=== PATIENT | female | born 1965 | race Hispanic/Latino ===

== ENCOUNTER 2024-02-18 12:12 | Inpatient (IN) | payer SELFPAY ==
[2024-02-18 13:18] LABS: #Basophils 0.03 10x3/uL (0.0-0.2); #Eosinphils 0.06 10x3/uL (0.0-0.5); #Monocytes 0.57 10x3/uL (0.0-1.1); #Neutrophils 4.97 10x3/uL (1.5-8.4); %Basophils 0.4 % (0.0-2.0); %Eosinophils 0.7 % (0.0-6.0); %Lymphocytes 29.6 % (18.0-47.0); %Monocytes 7.1 % (0.0-10.0); %Neutrophils 61.7 % (40.0-75.0); Hematocrit 39.6 % (34.9-44.5); Hemoglobin 14.4 g/dL (12.0-15.5); Mean Corpuscular HGB CONC 36.4 g/dL (32.0-36.0); Mean Corpuscular Hemoglobin 31.2 pg (27.0-33.0); Mean Corpuscular Volume 85.9 fL (81.6-98.3); Mean Platelet Volume 10.5 fL (7.4-10.4); Platelet Count 306 10x3/uL (150-450); RBC Distribution Width 11.1 % (11.5-14.5); Red Blood Cell (RBC) Count 4.61 10x6/uL (3.90-5.03); White Blood Cell (WBC) Count 8.1 10x3/uL (3.5-10.5)
[2024-02-18 13:31] LABS: ALT (SGPT) 19 U/L (8-55); AST (SGOT) 20 U/L (5-34); Albumin 3.7 g/dL (3.5-5.0); Alkaline Phosphatase 88 U/L (40-110); Anion Gap 19 mmol/L (10-20); BUN (Urea Nitrogen) 9 mg/dL (9.8-20.1); Bilirubin, Total 1.3 mg/dL (0.2-1.2); Calc. Creatinine Clearance 0 mL/min (70-130); Calcium 9.5 mg/dL (7.8-10.44); Carbon Dioxide 19 mmol/L (22-29); Chloride 98 mmol/L (98-107); Estimated GFR 84; Globulin 3.5 g/dL (2.4-3.5); Glucose 346 mg/dL (70-105); Potassium 3.3 mmol/L (3.5-5.1); Protein, Total 7.2 g/dL (6.0-8.3); Sodium 133 mmol/L (136-145)
[2024-02-18 17:22] LABS: Bilirubin Neg (Negative); Blood, Urine Negative (Negative); Clarity Clear (Clear); Glucose, Urine (Dipstick) >=1000 mg/dL (Negative); Ketone, Urine Negative (Negative); Leukocyte Negative (Negative); Nitrite Negative (Negative); Protein, Urine (Dipstick) Negative (Neg-Trace)
[2024-02-18 17:59] LABS: Bacteria/HPF 2+ HPF (None Seen); CAUTI Indications for Culture Spinal Cord Injury; RBC/HPF None Seen HPF (0-3); Squamous Epithelial 0-3 HPF (0-3); WBC/HPF None Seen HPF (0-3)
[2024-02-18 18:03] LABS: Urine Culture Reflex No No
[2024-02-18] MEDS ORDERED: Dextrose 5% in Water 1,000 ML IV PRN (18:24)
[2024-02-18] MEDS ORDERED: Ondansetron ODT 4 MG TAB PO PRN (18:24)
[2024-02-18] MEDS ORDERED: Dextrose 50% Abboject 50 ML SYRINGE SLOW IVP PRN (18:24)
[2024-02-18] MEDS ORDERED: Acetaminophen 650 MG Suppository PR PRN (18:24)
[2024-02-18] MEDS ORDERED: Glucagon 1 MG/ML KIT IM PRN (18:24)
[2024-02-18] MEDS ORDERED: Ondansetron PF 4 MG/2 ML Vial IVP PRN (18:24)
[2024-02-18] MEDS ORDERED: Bisacodyl 10 MG SUPP PR PRN (18:24)
[2024-02-18] MEDS ORDERED: Acetaminophen 325 MG TAB PO PRN (18:24)
[2024-02-18] MEDS ORDERED: Electrolyte Replacement Protocol 1 EACH FS PRN (18:30)
[2024-02-18 20:08] VITALS: BMI 38.9
[2024-02-18] MEDS: Lisinopril 2.5 MG TAB PO SCH (20:21)
[2024-02-18] MEDS: Famotidine 20 MG TAB PO SCH (20:21)
[2024-02-18] MEDS: Potassium Chloride 20 MEQ TAB PO SCH (20:22)
[2024-02-18] MEDS: Enoxaparin 40 MG (0.4 mL) SYRINGE SC SCH (20:28)
[2024-02-18] MEDS: HumaLOG 300 UNITS/3 ML VIAL SC PRN (20:34)
[2024-02-18] MEDS: traMADol HCl 50 MG TAB PO PRN (22:51)
[2024-02-19 05:44] LABS: #Basophils 0.04 10x3/uL (0.0-0.2); #Eosinphils 0.14 10x3/uL (0.0-0.5); #Neutrophils 4.14 10x3/uL (1.5-8.4); %Basophils 0.5 % (0.0-2.0); %Eosinophils 1.8 % (0.0-6.0); %Lymphocytes 37.8 % (18.0-47.0); %Monocytes 7.5 % (0.0-10.0); %Neutrophils 51.9 % (40.0-75.0); Hemoglobin 13.3 g/dL (12.0-15.5); Mean Corpuscular HGB CONC 35.9 g/dL (32.0-36.0); Mean Corpuscular Hemoglobin 31.5 pg (27.0-33.0); Mean Corpuscular Volume 87.7 fL (81.6-98.3); Mean Platelet Volume 10.7 fL (7.4-10.4); Platelet Count 270 10x3/uL (150-450); RBC Distribution Width 11.3 % (11.5-14.5); Red Blood Cell (RBC) Count 4.22 10x6/uL (3.90-5.03)
[2024-02-19 05:56] LABS: ALT (SGPT) 16 U/L (8-55); AST (SGOT) 13 U/L (5-34); Albumin 3.3 g/dL (3.5-5.0); Alkaline Phosphatase 78 U/L (40-110); Anion Gap 16 mmol/L (10-20); BUN (Urea Nitrogen) 8 mg/dL (9.8-20.1); Bilirubin, Total 1.1 mg/dL (0.2-1.2); Calc. Creatinine Clearance 153 mL/min (70-130); Calcium 9.1 mg/dL (7.8-10.44); Carbon Dioxide 21 mmol/L (22-29); Chloride 103 mmol/L (98-107); Estimated GFR 100; Globulin 2.9 g/dL (2.4-3.5); Glucose 178 mg/dL (70-105); Magnesium 1.6 mg/dL (1.6-2.6); Potassium 3.2 mmol/L (3.5-5.1); Protein, Total 6.2 g/dL (6.0-8.3); Sodium 137 mmol/L (136-145)
[2024-02-19 06:00] LABS: Phosphorus 4.1 mg/dL (2.3-4.7)
[2024-02-19] MEDS: HumaLOG 300 UNITS/3 ML VIAL SC PRN (06:28)
[2024-02-19] MEDS: Magnesium 2 GM/50 ML(in water) 2 GM in Premix 1 BAG IVPB SCH (10:51)
[2024-02-19] MEDS: Lisinopril 2.5 MG TAB PO SCH (10:52)
[2024-02-19] MEDS: Potassium Chloride 20 MEQ TAB PO SCH (10:55)
[2024-02-19 12:33] LABS: Hemoglobin A1c 9.8 % (4.0-6.0)
[2024-02-19] MEDS ORDERED: Magnevist 469MG/ML 20 ML VIAL ONE (13:06)
[2024-02-19 13:14] LABS: Syphilis Antibody Nonreactive (Nonreactive); Syphilis Antibody Index 0.06 S/CO (<1.00 Non-Reactive)
[2024-02-19 13:16] LABS: HIV (1/2) Antibody/Antigen Non-Reactive (NonReactive); HIV 1/2 INDEX 0.09 S/CO (<1.00)
[2024-02-19] MEDS ORDERED: Enoxaparin 40 MG (0.4 mL) SYRINGE SC SCH (13:30)
[2024-02-19] MEDS: metFORMIN 500 MG TAB PO SCH (17:19)
[2024-02-19] MEDS: Amlodipine 5 MG TAB PO SCH (17:19)
[2024-02-19] MEDS: glipiZIDE 5 MG TAB PO SCH (17:19)
[2024-02-19] MEDS: Enoxaparin 40 MG (0.4 mL) SYRINGE SC SCH (20:16)
[2024-02-20 06:32] LABS: Anion Gap 14 mmol/L (10-20); BUN (Urea Nitrogen) 10 mg/dL (9.8-20.1); Calc. Creatinine Clearance 143 mL/min (70-130); Calcium 9.5 mg/dL (7.8-10.44); Carbon Dioxide 26 mmol/L (22-29); Chloride 101 mmol/L (98-107); Estimated GFR 92; Glucose 94 mg/dL (70-105); Magnesium 1.9 mg/dL (1.6-2.6); Sodium 137 mmol/L (136-145)
[2024-02-20] MEDS: Amlodipine 5 MG TAB PO SCH (08:19)
[2024-02-20] MEDS: glipiZIDE 5 MG TAB PO SCH (08:20)
[2024-02-20] MEDS: Magnesium 2 GM/50 ML(in water) 2 GM in Premix 1 BAG IVPB SCH (09:20)
[2024-02-20] MEDS: Ibuprofen 600 MG TAB PO PRN (17:03)
[2024-02-21 07:19] LABS: Magnesium 1.9 mg/dL (1.6-2.6)
[2024-02-21] MEDS: Amlodipine 5 MG TAB PO SCH (09:32)
[2024-02-21] MEDS: Magnesium 2 GM/50 ML(in water) 2 GM in Premix 1 BAG IVPB SCH (09:34)
[2024-02-21] MEDS ORDERED: Lidocaine 1% PF 5 ML VIAL ONE (10:09)
[2024-02-21] MEDS ORDERED: Sodium Bicarbonate 2.5 MEQ/5 ML SDV ONE (10:09)
[2024-02-21 12:27] LABS: CSF Source CSF; Clarity Clear (Clear); Tube # 4
[2024-02-21 12:28] LABS: CSF RBC Count - Manual 38 /cu.mm (None Seen); CSF WBC/NonHematics Count-Man 6 /cu.mm (0-5)
[2024-02-21 14:31] LABS: PT - Undiluted 12.3 sec (12.0-14.7)
[2024-02-21] MEDS: PRIVIGEN IVPB SCH (16:51)
[2024-02-22 04:16] LABS: Magnesium 2.2 mg/dL (1.6-2.6)
[2024-02-23 12:42] LABS: West Nile Virus IgG Ab - CSF Negative (Negative); West Nile Virus IgM Ab - CSF Negative (Negative)
[2024-02-23] MEDS: metFORMIN 500 MG TAB PO SCH (18:40)
[2024-02-24 00:08] LABS: HSV 1 - DNA, CSF Negative (Negative); HSV 2 - DNA, CSF Negative (Negative)
[2024-02-24 08:29] VITALS: BP 169/89; TEMP 98.4
[2024-02-24] MEDS: glipiZIDE 5 MG TAB PO SCH (08:55)
== END 2024-02-24 10:55 | disposition home or self-care (01) | DRG 948 ==
LOC: CSHERS 12:12 → CSHTELE 17:08 → OBSVTOIN 02-19 13:22
PROVIDERS: ADMIT Family Medicine; ATTEND Family Medicine
PROC: 009U3ZZ Drainage of Spinal Canal, Percutaneous Approach (ICD-10-PCS; principal; 2024-02-21)
PROC: B01B1ZZ Fluoroscopy of Spinal Cord using Low Osmolar Contrast (ICD-10-PCS; 2024-02-21)
PROC: 30233S1 Transfusion of Nonautologous Globulin into Peripheral Vein, Percutaneous Approach (ICD-10-PCS; 2024-02-21)
DX: R53.1 Weakness (principal); E11.42 Type 2 diabetes mellitus with diabetic polyneuropathy; E11.65 Type 2 diabetes mellitus with hyperglycemia; I10 Essential (primary) hypertension; M17.0 Bilateral primary osteoarthritis of knee; E87.6 Hypokalemia; R20.2 Paresthesia of skin; Z90.49 Acquired absence of other specified parts of digestive tract
CPT/HCPCS: 36415; 36416; 62270; 70450; 70553; 72141; 72146; 72148; 80048; 80053; 81001; 82040; 82042; 82525; 82607; 82784; 82945; 83036; 83735; 83916; 84100; 84157; 84425; 84443; 85025; 86592; 86780; 86788; 86789; 87070; 87102; 87205; 87389; 87529; 87899; 89051; 94760; A9579; J1459; J1650; J1815; J3475